=== PATIENT | male | born 1935 | race Caucasian/White ===

== ENCOUNTER 2016-11-14 20:31 | Emergency (ER) | payer MEDICARE ==
[~2016-11-14] VITALS: Ht 177.8 cm; Wt 90.9 kg
[~2016-11-14 20:31] MED LIST: ALLO300T2 PO; ASPI-973 PO; CEPH500C PO; CHOL200047 PO; LISI10TA PO; MULT-1018 PO; TRAM50TA2 PO
[2016-11-14 20:44] VITALS: BP 152/85; PULSE 83; RESP 22; O2SAT 95
--- NOTE | 2016-11-14 21:19 | ED.REPORT ---
HPI-Facial Injury Date of Service Nov 14, 2016 ED Provider: Dr. Mason Pt is a healthy 81 y/o male w/ a hx of HTN presenting to the ED with his due to minor head injury. The patient was walking up 2 step set of stairs and tripped and landed with his left arm outward and his head ran into his watch on his left wrist causing a cut with some mild bleeding. He reports he landed somewhat hard on his left knee as well. Pt denies headache, vision changes, left knee pain, pain with walking, change in LOC. He is not anticoagulated. Nursing Notes Stated Complaint: CUT ON LEFT EYE Chief Complaint: Head, Face, Neck Trauma Nursing Notes Reviewed: Yes Allergies: Coded Allergies: No Known Allergies (Verified Allergy, Unknown, 11/14/16) Scheduled Allopurinol (Allopurinol) 300 Mg Tablet 300 MG PO DAILY Aspirin (Aspirin) 81 Mg Tablet 81 MG PO DAILY Cephalexin (Cephalexin) 500 Mg Capsule 500 MG PO TID Cholecalciferol (Vitamin D3) (Vitamin D3) 2,000 Unit Capsule 2,000 UNIT PO DAILY Lisinopril (Lisinopril) 10 Mg Tablet 10 MG PO DAILY Multivitamin (Multi Vitamin Daily) 1 Each Tablet 1 EACH PO DAILY Scheduled PRN Tramadol (Tramadol) 50 Mg Tablet 50 MG PO TID PRN PRN For Pain General Time Seen by Provider: 21:15 Chief Complaint Other (head inj) Hx Obtained From: Patient, Spouse Arrived By: Walk-in Onset Occurred: Just prior to arrival Symptom Duration: Since onset Progression Since Onset: Constant Caused by: Blunt trauma, Fall Severity: Current: No pain currently Severity: Maximum: No pain Recent Healthcare: No recent doctor visit, No recent hospitalization Similar Sx Previous: No Past Medical History Past Medical History Gout Arthritis Reports: Hypertension Past Surgical History Right rib resection Left knee scope L4-L5 laminectomy Smoking History Never Smoker Social History Alcohol Use: "Social" Drug Use: Denies drug use Ambulatory Status Independent Review of Systems Constitutional: Denies: Chills, Fever Musculoskeletal: Denies: Extremity pain, Extremity swelling Neurologic: Denies: Change LOC, Confusion, Focal weakness, Headache, Numbness, Syncope, Weakness Complete sys rev & neg: except as marked. Hematologic: Reports Bleeding, Denies Bruising Physical Exam Initial Vital Signs Vital Signs (First) Date Time Temp Pulse Resp B/P Pulse Ox O2 Delivery O2 Flow Rate FiO2 6/3/17 20:44 36.4 83 22 152/85 95 Room Air Initial VS: Reviewed, Vital signs normal Respiratory: Breath sounds normal, Clear to auscultation, No respiratory distress Cardiovascular: Regular rate & rhythm, Heart sounds normal, Intact distal pulses Abdomen / GI: Soft, Non-tender, No guarding, No rebound, No distention Skin: Warm, Dry, No cyanosis Psychiatric: Mood/affect normal, Behavior normal, Normal thought content Head / Eyes: Normocephalic, PERRL, EOMI, No periorbital redness, No periorbital swelling Trauma - Eye Specific: Negative: Raccoon eyes 1 cm laceration above left lateral eyebrow. ENT: Atraumatic, Airway patent, Mucous membranes moist No Douglas's sign Neck: Atraumatic, Supple, No meningismus, Full range of motion, Non-tender, No midline vertebral tend Neurologic: Oriented X3, Speech NL, No motor deficits, No sensory deficits, CN II - XII intact, Cerebellar NL, Memory NL General/Constitutional: Awake, Alert, No acute distress, Well appearing, Cooperative, Not toxic appearing Back: Full range of motion, Painless range of motion, Non-tender, No midline vertebral tend Upper Extremity / MS: No erythema, No deformity, Neurologic intact, Vascular intact Abrasions to proximal right palm Lower Extremity / Pelvis / MS: No deformity, Neurologic intact, Vascular intact Bruising and abrasion to left patella and just below left knee Procedures Laceration Management Time: 21:42 Procedure Performed by: ED physician Consent / Setup / Site Prep: Consent from patient, Time-out performed, Hand hygiene observed, Stand sterile technique Location of Wound: Above left eyebrow Wound Length: 1 cm Local Anesthesia: Lidocaine w epi 1% Wound Preparation: Hibiclens - Chlorhexidine Debridement: None Irrigation: Copious Undermining / Margins: Flaps aligned Repair Skin: ___ O (6), Prolene # Sutures - Skin: 2 Closure Layers: 1 Suture Technique: Simple Post-Procedure / Complications: Antibiotic oint applied, No complications, Condition improved, Tolerated procedure well, Patient stable Re-Eval/Medical Decision Med Decision/Clinical Course The patient had a mechanical fall hitting his left knee right palm and keeping his hand onto his walks. He did not have any loss of consciousness and is not on any blood thinners. His laceration was caused from his watch. He does not have a headache or neurologic symptoms. Re-Evaluation/Progress : Time of Eval: 22:38 Re-Evaluation/Progress Note: Pt rechecked. Informed pt of plan for treatment. Pt understands and agrees with plan for treatment. F/U instructions and RTER warnings given. All questions addressed. Counseled Regarding: Diagnosis, Need for follow-up, When/why to return to ED Discharge & Departure Impression: Primary Impression: Facial laceration Encounter type: initial encounter Qualified Code: S01.81XA - Laceration without foreign body of other part of head, initial encounter Additional Impressions: Fall Encounter type: initial encounter Qualified Code: W19.XXXA - Unspecified fall, initial encounter Knee contusion Encounter type: initial encounter Laterality: left Qualified Code: S80.02XA - Contusion of left knee, initial encounter Disposition: Home Discharge Condition All VS Reviewed: Yes Condition: Stable Patient Instructions: Laceration (ED) Additional Instructions: See a medical professional in 5-6 days for suture removal. This can be performed here at the ER, Urgent Care, or at your primary care office. Keep the wound clean and covered with antibiotic ointment. Don't wet the wound for 24-36 hours. Afterwards you can clean it but not soak it. Return to the emergency department if you develop signs of infection: swelling, pain, discharge of pus, redness, fever, chills, or other concerning symptoms. Referrals: Katelin Hoover MD (PCP) Kyle Attestation Portions of this note were transcribed by Bjorn Hall. I, Dr. Mason personally performed the history, physical exam and medical decision-making; I reviewed and confirmed the accuracy of the information in the transcribed note. Signed by Kyle Milton, 11/14/16 - 0 copies to: Katelin Hoover MD, Jena M MD Nov 14, 2016 21:19 BJORN HALL Nov 14, 2016 21:32
[2016-11-14 22:48] VITALS: BP 144/87; PULSE 69; O2SAT 97
[2016-11-14 22:52] VITALS: BP 144/87; PULSE 69; O2SAT 97
== END 2016-11-14 22:53 | disposition home or self-care (01) ==
LOC: SED 20:31
DX: S01.81XA Laceration without foreign body of other part of head, initial encounter (principal); S80.02XA Contusion of left knee, initial encounter; W10.9XXA Fall (on) (from) unspecified stairs and steps, initial encounter; Y93.01 Activity, walking, marching and hiking; Y93.89 Activity, other specified; Y92.009 Unspecified place in unspecified non-institutional (private) residence as the place of occurrence of the external cause; Y99.8 Other external cause status; I10 Essential (primary) hypertension; Z79.82 Long term (current) use of aspirin

== ENCOUNTER 2016-11-20 08:17 | Emergency (ER) | payer MEDICARE ==
[2016-11-20 08:22] VITALS: BP 146/89; PULSE 64; RESP 18; O2SAT 99
== END 2016-11-20 08:30 | disposition home or self-care (01) ==
LOC: SED 08:17
DX: Z48.02 Encounter for removal of sutures (principal)